=== PATIENT | female | born 1965 | race Caucasian/White ===

== ENCOUNTER 2021-02-06 06:11 | Emergency (ER) | payer BC ==
[~2021-02-06] VITALS: Ht 160 cm; Wt 62.6 kg
--- NOTE | 2021-02-06 06:25 | NUR ---
MD Frausto in room to do MSE.
[2021-02-06] MEDS ORDERED: OXYC18CA PO (06:27)
[2021-02-06] MEDS ORDERED: LISI20TA30 PO (06:27)
[2021-02-06] MEDS ORDERED: CARI350T PO (06:27)
[2021-02-06] MEDS ORDERED: OXYC10TA59 PO (06:27)
[2021-02-06] MEDS ORDERED: LORAZEPAM 0.5 MG TABLET PO ONE ×2 (06:30→07:30)
[2021-02-06] MEDS ORDERED: LORAZEPAM 1 MG TABLET ONE ×2 (06:35→07:33)
--- NOTE | 2021-02-06 06:57 | NUR ---
MD Frausto following up on patient.
--- NOTE | 2021-02-06 07:11 | NUR ---
Hand off report given to CAITLYN Vale
--- NOTE | 2021-02-06 07:25 | NUR ---
Pt states to be still anxious, DR Frausto made awaare.
[2021-02-06] MEDS ORDERED: LORA-259 PO (07:46)
--- NOTE | 2021-02-06 08:00 | NUR ---
Pt is resting in bed, states feeling better.
[2021-02-06 08:01] VITALS: BP 147/97
--- NOTE | 2021-02-06 08:03 | NUR ---
Patient discharged to home in stable condition. Written and verbal after care instructions given. Patient verbalizes understanding of instructions. Stressed follow up or return to ER for worsening s/s.
--- NOTE | 2021-02-06 08:03 | NUR ---
Pt left Er w/ steady gait accompained by partner.
== END 2021-02-06 08:04 | disposition home or self-care (01) ==
LOC: ER 06:15
DX: G25.2 Other specified forms of tremor (principal); T50.7X5A Adverse effect of analeptics and opioid receptor antagonists, initial encounter; Y92.89 Other specified places as the place of occurrence of the external cause; F41.9 Anxiety disorder, unspecified; R03.0 Elevated blood-pressure reading, without diagnosis of hypertension; G89.29 Other chronic pain; M54.2 Cervicalgia; M43.22 Fusion of spine, cervical region
CPT/HCPCS: A4663